=== PATIENT | male | born 1985 | race Caucasian/White ===

== ENCOUNTER 2017-07-24 19:34 | Emergency (ER) | payer MEDICAID | END 2017-07-24 20:20 | disposition home or self-care (01) | LOC: E/R 19:34 | DX: B34.9 Viral infection, unspecified (principal) | CPT/HCPCS: 99284; Z7502 ==

== ENCOUNTER 2017-08-05 13:04 | Emergency (ER) | payer MEDICAID ==
[2017-08-05] MEDS: ONDANSETRON (ODT) 4 MG TAB ODT (16:10)
[2017-08-05] MEDS: predniSONE 20 MG TAB PO (16:34)
== END 2017-08-05 16:59 | disposition home or self-care (01) ==
LOC: FTE 13:04
DX: J06.9 Acute upper respiratory infection, unspecified (principal); J45.909 Unspecified asthma, uncomplicated
CPT/HCPCS: 71045; 99284-25